=== PATIENT | female | born 1970 | race Caucasian/White ===

== ENCOUNTER 2025-01-15 06:09 | Day surgery (SDC) | payer BC ==
[2025-01-11 08:37] LABS: BASOPHILS # (AUTO) 0.03 K/uL (0.00-0.20); BASOPHILS % (AUTO) 0.8 % (0.0-5.0); EOSINOPHILS # (AUTO) 0.08 K/uL (0.00-0.70); EOSINOPHILS % (AUTO) 2.1 % (0.0-8.0); HEMATOCRIT 37.4 % (36-48); LYMPHOCYTES # (AUTO) 1.6 K/uL (1.0-4.8); LYMPHOCYTES % (AUTO) 42.3 % (21.0-51.0); MEAN CORPUSCULAR HEMOGLOBIN 30.8 pg (27.0-33.0); MEAN CORPUSCULAR HGB CONC 32.1 g/dL (32.0-36.0); MEAN CORPUSCULAR VOLUME 96.1 fL (79-99); MONOCYTES # (AUTO) 0.3 K/uL (0.1-1.0); MONOCYTES % (AUTO) 8.7 % (3.0-13.0); NEUTROPHILS # (AUTO) 1.7 K/uL (1.8-7.7); NEUTROPHILS % (AUTO) 46.1 % (40.0-77.0); PLATELET COUNT (AUTO) 182 K/uL (130-400); RED BLOOD CELL COUNT(AUTO) 3.89 MIL/uL (4.00-5.50); RED CELL DISTRIBUTION WIDTH 12.9 % (11.0-15.5); WHITE BLOOD COUNT (AUTO) 3.8 K/uL (4.8-10.8)
--- NOTE | 2025-01-11 08:38 | EKG ---
[facility] Test Date: 2025-01-11 Test Time: 08:30:01 Pat Name: ROS CRUZ Department: [facility] Room: Gender: F Clinical Informatics Physician: [id number] : 1970 Requested By: KENDY ELIAS Order Number: [id number] Reading MD: Edson Day Measurements Intervals Rock Rate: 47 P: 0 CT: 0 QRS: 14 QRSD: 79 T: 16 QT: 434 QTc: 385 Interpretive Statements SINUS BRADYCARDIA Low voltage, precordial leads Compared to ECG 03/30/2016 17:47:47 Low QRS voltage now present Sinus bradycardia no longer present Electronically Signed On 01-13-2025 18:33:18 CDT by Edson Day Please click the below link to view image of tracing.
[2025-01-11 08:46] LABS: INR <= 0.93 (0.85-1.15); PROTHROMBIN TIME 9.9 SEC (9.6-11.6)
[2025-01-11 08:48] LABS: CREATININE 0.6 mg/dL (0.5-1.0); PARTIAL THROMBOPLASTIN TIME 28.5 SEC (26.3-35.5); POTASSIUM 4.6 mmol/L (3.5-5.1)
[2025-01-11 09:13] VITALS: BP 129/65; PULSE 51; RESP 18; TEMP 97.2
--- NOTE | 2025-01-11 12:51 | NUR ---
report informed ion whiting pt is not on blood thinners or anti arrhythmia meds and wants to take gabapentin prior to procedure. ok to proceed and for pt to take gabapentin morning of procedure. ekg also reviewed by ion
[~2025-01-15] VITALS: Ht 177.8 cm; Wt 123.8 kg
[2025-01-15] VITALS (7 sets, daily range): BP systolic 130–140; BP diastolic 50–91; PULSE 53–68; RESP 14–18; TEMP 97.2–97.7
[~2025-01-15 06:09] MED LIST: GABA300C PO; LOSA50TA64 PO; MELO-108 PO; SIMV10TA97 PO
[2025-01-15] MEDS: 0.9%NACL 1000ML 1,000 ML IV SCH (06:38)
[2025-01-15] MEDS ORDERED: LIDOCAINE HCL 400MG/20ML VIAL ONE (07:13)
[2025-01-15] MEDS ORDERED: BUPIvacaine/PF 0.25% 30ML VIAL IJ ONE (07:14)
[2025-01-15] MEDS ORDERED: HEParin 10,000 UNIT/10ML (1,000 UNIT/ML) VIAL ONE (07:14)
[2025-01-15] MEDS ORDERED: HEParin-NS 1,000 UNIT/500 ML 1,000 ML IV ONE (07:14)
[2025-01-15] MEDS ORDERED: HEParin 1,000 UNIT VIAL ONE (07:15)
[2025-01-15] MEDS ORDERED: MIDAZOLAM HCL 1 MG/ML 2ML VIAL ONE ×4 (07:45→08:47)
[2025-01-15] MEDS ORDERED: FENTanyl CITRate PF 50 MCG/1 ML 2ML VIAL ONE ×2 (07:45→08:36)
[2025-01-15] MEDS ORDERED: AMIOdarone 150MG VIAL ONE (08:40)
[2025-01-15] MEDS ORDERED: proPOFol 10 MG/ML 20ML VIAL IV ONE (09:47)
[2025-01-15] MEDS ORDERED: RIVA20TA PO (11:07)
--- NOTE | 2025-01-15 13:00 | NUR ---
Full and complete discharge instructions given to Patient and Family both verbally and in writing. Explained Cardiac Ablation procedure precautions and follow up. Voided 450 mls with good PO intake evident. All questions answered. PIV removed with catheter tip intact. Groin site and clean, dry without any sign of bleeding, bruising or hematoma. Home with Family W/C to POV.
== END 2025-01-15 13:05 | disposition home or self-care (01) ==
LOC: DAH 06:09
PROVIDERS: ATTEND Internal Medicine Cardiovascular Disease
DX: I48.3 Typical atrial flutter (principal); E78.5 Hyperlipidemia, unspecified; I10 Essential (primary) hypertension; G47.33 Obstructive sleep apnea (adult) (pediatric); Z79.899 Other long term (current) drug therapy; Z79.82 Long term (current) use of aspirin; Z98.890 Other specified postprocedural states; Z88.8 Allergy status to other drugs, medicaments and biological substances; Z79.01 Long term (current) use of anticoagulants
CPT/HCPCS: 80048; 85025; 85610; 85730; 36415; 93005; 93653; C1894 ×3; C1732 ×2; C1893; A4649 ×2; C1760 ×3; J3010 ×2; J3490; J7030; J2250 ×4; J2704; J1644; J0282; A4215 ×2; A4222; A4221; A4663; A4216; A4606; A4223 ×3; 93662; 99156; 99157; J0665